=== PATIENT | female | born 1955 | race Caucasian/White ===

== ENCOUNTER 2017-11-30 07:49 | Emergency (ER) | payer OTHER ==
[2017-11-30] MEDS: ONDANSETRON (ODT) 4 MG TAB ODT (09:09)
[2017-11-30] MEDS: HYDROCODONE/APAP (5/325) TAB PO (09:09)
[2017-11-30] MEDS: LIDOCAINE 1%/EPI 30 ML INJ INJ (09:10)
== END 2017-11-30 10:27 | disposition home or self-care (01) ==
LOC: FTE 07:49
DX: L72.3 Sebaceous cyst (principal)
CPT/HCPCS: 56405; 99284-25

== ENCOUNTER 2018-03-10 14:19 | Emergency (ER) | payer OTHER ==
[2018-03-10 16:59] LABS: ADD UMIC YES; UR ASCORBIC ACID NEGATIVE (NEGATIVE); UR BILIRUBIN (Dip) NEGATIVE (NEGATIVE); UR BLOOD (Dip) NEGATIVE (NEGATIVE); UR CLARITY CLEAR (CLEAR); UR COLOR YELLOW (YELLOW); UR GLUCOSE (Dip) NEGATIVE (NEGATIVE); UR KETONES (Dip) 1+ mg/dL (NEGATIVE); UR LEUKOCYTE ESTERASE (Dip) 1+ Leu/ul (NEGATIVE); UR NITRITE (Dip) NEGATIVE (NEGATIVE); UR RBC 1 /HPF (0-5); UR SPECIFIC GRAVITY (Dip) 1.009 (1.003-1.030); UR SQUAMOUS EPITHELIAL CELL FEW /HPF (FEW); UR TOTAL PROTEIN (Dip) NEGATIVE (NEGATIVE); UR UROBILINOGEN (Dip) NEGATIVE (NEGATIVE); UR WBC 8 /HPF (0-5)
[2018-03-10 17:12] LABS: ADD MAN DIFF? NO
[2018-03-10 17:14] LABS: BASOPHILS % 0.4 % (0.0-2.0); EOSINOPHILS % 0.9 % (0.0-7.0); HEMATOCRIT 37.4 % (37.0-47.0); HEMOGLOBIN 12.6 g/dl (12.0-16.0); LYMPHOCYTES # 0.9 10^3/ul (0.8-2.9); LYMPHOCYTES % 18.9 % (15.0-51.0); MEAN CORPUSCULAR HEMOGLOBIN 30.4 pg (29.0-33.0); MEAN CORPUSCULAR HGB CONC 33.7 g/dl (32.0-37.0); MEAN CORPUSCULAR VOLUME 90.1 fl (82.0-101.0); MEAN PLATELET VOLUME 9.9 fl (7.4-10.4); MONOCYTE # 0.4 10^3/ul (0.3-0.9); MONOCYTES % 8.9 % (0.0-11.0); NEUTROPHIL # 3.3 10^3/ul (1.6-7.5); NEUTROPHILS % 70.7 % (39.0-77.0); PLATELET COUNT 169 10^3/UL (140-415); RED BLOOD COUNT 4.15 10^6/ul (4.20-5.40); RED CELL DISTRIBUTION WIDTH 12.5 % (11.5-14.5)
[2018-03-10 17:14] LABS: WHITE BLOOD COUNT 4.6 10^3/ul (4.8-10.8)
[2018-03-10 17:29] LABS: OPIATES Negative (NEGATIVE)
[2018-03-10 17:34] LABS: AMPHETAMINE/METHAMPHETAMINE Negative (NEGATIVE); BARBITURATES Negative (NEGATIVE); BENZODIAZEPINES Negative (NEGATIVE); CANNABINOIDS Negative (NEGATIVE); COCAINE Negative (NEGATIVE)
[2018-03-10 17:53] LABS: ALANINE AMINOTRANSFERASE 38 IU/L (13-69); ALBUMIN 4.6 g/dl (3.3-4.9); ALBUMIN/GLOBULIN RATIO 1.35; ALKALINE PHOSPHATASE 92 IU/L (42-121); ANION GAP 15 (8-16); ASPARTATE AMINO TRANSFERASE 37 IU/L (15-46); BILIRUBIN,INDIRECT 0.6 mg/dl (0-1.1); BILIRUBIN,TOTAL 0.6 mg/dl (0.2-1.3); BLOOD UREA NITROGEN 8 mg/dl (7-20); CALCIUM 9.6 mg/dl (8.4-10.2); CARBON DIOXIDE 27 mmol/L (21-31); CHLORIDE 104 mmol/L (97-110); GLUCOSE 95 mg/dl (70-220); SODIUM 142 mmol/L (135-144)
[2018-03-10 17:59] LABS: ETHANOL < 10.0 mg/dl
[2018-03-10] MEDS: RISPERIDONE 0.25 MG TAB PO (23:41)
[2018-03-11] MEDS: RISPERIDONE 0.25 MG TAB PO (09:01)
[2018-03-11] MEDS: ARIPIPRAZOLE 2 MG TAB PO (21:01)
[2018-03-11] MEDS: LORAZEPAM 2 MG INJ IM (21:38)
[2018-03-12] MEDS: HYDROCHLOROTHIAZIDE 25 MG TAB PO (09:06)
[2018-03-12] MEDS: TERAZOSIN 1 MG CAP PO (09:06)
== END 2018-03-12 10:05 ==
LOC: E/R 03-12 10:05
DX: F32.9 Major depressive disorder, single episode, unspecified (principal); R40.2242 Coma scale, best verbal response, confused conversation, at arrival to emergency department; J45.909 Unspecified asthma, uncomplicated; R40.2142 Coma scale, eyes open, spontaneous, at arrival to emergency department; R40.2362 Coma scale, best motor response, obeys commands, at arrival to emergency department; R42 Dizziness and giddiness
CPT/HCPCS: 36415; 70450; 80053; 80306; 80307; 81001; 85025; 96372; 99285-25